=== PATIENT | male | born 1960 | race Caucasian/White ===

== ENCOUNTER → 2016-06-25 | Outpatient (CLI) | payer BC, OTHER ==
--- NOTE | 2016-06-26 14:46 | DI ---
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 Scans are obtained from just superior to the left AC joint to the midshaft of the humerus without IV contrast. Sagittal and coronal reformatted images are also generated. In addition, oblique coronal an d sagittal scans are generated in the same orientation and is used MRI scanning. 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 A joint effusion is present. Bony spurring is present along the inferomedial margin of the humeral head. There is an irregular con cavity in the posterolateral margin of the humeral head and this may represent an old Hill-Sachs defo rmity. There is "flattening" with remodeling of the glenoid fossa. There are subchondral and cortical defects in the glenoid fossa at the 6:00 position and both sides of the equator. There is a large de fect toward the superior lateral margin of the humeral head near the greater tuberosity and this may be related to previous surgical repair of the rotator cuff. The tendon of the long head of the biceps muscle is visualized within and up to the inferior aspect of the bicipital groove. No muscle atrophy or fatty infiltration is present. READIN. Arthritic proliferative spurring is present along the inferomedial aspect of the humeral head and there may be an old Hill-Sachs deformity. There is a large defect in the humeral head near the great er tuberosity. This patient may have had prior rotator cuff surgery. There has been remodeling with " flattening" of the glenoid fossa and there are are some chondral and cortical defects in the glenoid fossa at the 6:00 position and both sides of the equator. 2. A large joint effusion is present. 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 No muscle atrophy or fatty infiltration of the muscles is identified. There is a type I acromion.
== END ==
LOC: CT 09:58
PROVIDERS: ATTEND Orthopaedic Surgery Hand Surgery
DX: M25.512 Pain in left shoulder (principal); M25.412 Effusion, left shoulder; M19.012 Primary osteoarthritis, left shoulder
CPT/HCPCS: 73200

== ENCOUNTER → 2016-07-09 | Outpatient (CLI) | payer BC, OTHER ==
[2016-07-09 09:17] LABS: BILIRUBIN,URINE SMALL (NEG); COLOR,URINE YELLOW; GLUCOSE, URINE (UA) NEGATIVE (NEG); NITRATE,URINE NEGATIVE (NEG); OCCULT BLOOD,URINE NEGATIVE (NEG); PROTEIN,URINE NEGATIVE (NEG); UROBILINOGEN,URINE 0.2 mg/dL (0.2)
[2016-07-09 09:27] LABS: BASOPHILS % (AUTO) 1.2 % (0-1); EOSINOPHILS # (AUTO) 0.06 10*3/UL; EOSINOPHILS % (AUTO) 0.7 % (0-8); HEMATOCRIT 42.6 % (42.0-52.0); LYMPHOCYTES # (AUTO) 1.52 10*3/uL; MEAN CORPUSCULAR HEMOGLOBIN 24.7 PG (27-31); MEAN CORPUSCULAR HGB CONC 32.9 g/dL (33-37); MEAN CORPUSCULAR VOLUME 75.1 FL (80-90); MEAN PLATELET VOLUME 9.5 FL (7.4-12.2); MONOCYTES # (AUTO) 0.51 10*3/UL (0.3-0.8); NEUTROPHILS # (AUTO) 6.28 10*3/UL; NEUTROPHILS % (AUTO) 73.8 % (50-80); RED BLOOD COUNT 5.67 10^6/uL (4.70-6.10)
[2016-07-09 09:32] LABS: CLARITY,URINE CLEAR (CLEAR); PLATELET MORPHOLOGY COMMENT NORMAL MORPHOLOGY (NORM); RBC MORPHOLOGY COMMENT NORMAL MORPHOLOGY (NORM); WBC MORPHOLOGY COMMENT NORMAL MORPHOLOGY (NORM)
[2016-07-09 09:33] LABS: BACTERIA,URINE RARE; RBC,URINE 0 /hpf; URINE SAMPLE TYPE VOIDED SPECIMEN; WBC,URINE 0
--- NOTE | 2016-07-09 09:58 | EKG ---
[address] [address] Measurements Intervals [place] Rate: 81 P: 76 WV: 161 QRS: 68 QRSD: 88 T: 58 QT: 344 QTc: 381 Interpretive Statements SINUS RHYTHM MINIMAL VOLTAGE CRITERIA FOR LVH, CONSIDER NORMAL VARIANT No previous ECG available for comparison Electronically Signed On 07-09-16 15:06:53 MDT by Conrad Villa [email or web address]
[2016-07-09 09:59] LABS: BLOOD UREA NITROGEN 15 mg/dL (7-22); BUN/CREATININE RATIO 16.66 (6-20); CALCIUM 9.4 mg/dL (8.7-10.7); EST GLOMERULAR FILTRATION > 60 (>60 ml/min/1.73m(2))
== END ==
LOC: LAB 08:54
PROVIDERS: ATTEND Orthopaedic Surgery Hand Surgery
DX: Z01.812 Encounter for preprocedural laboratory examination (principal); Z01.810 Encounter for preprocedural cardiovascular examination; M25.512 Pain in left shoulder; M19.012 Primary osteoarthritis, left shoulder
CPT/HCPCS: 36415; 80053; 81001; 85025; 93005; 93010